=== PATIENT | male | born 1990 | race Caucasian/White ===

== ENCOUNTER 2023-11-07 15:14 | Emergency (ER) | payer OTHER ==
[~2023-11-07] VITALS: Ht 167.6 cm; Wt 83.9 kg
[2023-11-07 15:35] VITALS: BP 120/86; PULSE 70; RESP 18; TEMP 98.3; O2SAT 99
[2023-11-07] MEDS ORDERED: IBUP-2213 PO (16:21)
== END 2023-11-07 16:42 | disposition home or self-care (01) ==
LOC: MED 15:14
DX: S60.112A Contusion of left thumb with damage to nail, initial encounter (principal); R03.0 Elevated blood-pressure reading, without diagnosis of hypertension; Z79.1 Long term (current) use of non-steroidal anti-inflammatories (NSAID); W23.0XXA Caught, crushed, jammed, or pinched between moving objects, initial encounter; Y93.89 Activity, other specified; Y92.89 Other specified places as the place of occurrence of the external cause; Y99.8 Other external cause status
CPT/HCPCS: 73120; 99283; 99284